=== PATIENT | female | born 1955 | race Caucasian/White ===

== ENCOUNTER → 2022-07-16 11:28 | Outpatient (CLI) | payer MEDICARE, SELFPAY ==
[2022-07-16 20:05] LABS: Alanine Aminotransferase 34 IU/L (<35); Albumin Globulin Ratio 1.3 (1.0-2.8); Alkaline Phosphatase 80 U/L (38-126); Aspartate Aminotransferase 32 IU/L (14-36); BUN Creatinine Ratio 18.8 (6-22); Bilirubin Total 0.4 mg/dL (0.2-1.3); Blood Urea Nitrogen 19 mg/dL (7-17); Calcium 9.2 mg/dL (8.4-10.2); Carbon Dioxide 27 mmol/L (22-32); Chloride 101 mmol/L (98-107); Estimated Glomerular Filt Rate > 60 mL/min (>60); Globulin 3.2 g/dL (1.7-4.1); Glucose 83 mg/dL (80-110); HEMOLYSIS < 15 (0-50); Potassium 4.7 mmol/L (3.4-5.1); Sodium 136 mmol/L (137-145); Total Protein 7.2 g/dL (6.3-8.2)
== END ==
PROVIDERS: PCP Physician Assistant; Visit Provider Physician Assistant
DX: M75.00 Adhesive capsulitis of unspecified shoulder (principal)
CPT/HCPCS: 80053

== ENCOUNTER 2024-03-13 13:58 | Emergency (ER) | payer MEDICARE, OTHER, SELFPAY ==
[2024-03-13 14:09] VITALS: BP 152/67; PULSE 74; RESP 17; TEMP 36.6; O2SAT 98
--- NOTE | 2024-03-13 14:15 | DI.RAD.S_ITS ---
PROCEDURE: XR TIBIA FUBULA RT 2V INDICATIONS: fall TECHNIQUE: 2 views of the tibia and fibula were acquired. COMPARISON: None. FINDINGS: Bones: No fractures or dislocations. No suspicious bony lesions. Soft tissues: No suspicious soft tissue calcifications or masses. IMPRESSION: No acute lower leg fracture or dislocation. Dictated by: John Guevara M.D. on 03/13/2024 at 15:15 Approved by: John Guevara M.D. on 03/13/2024 at 15:16
--- NOTE | 2024-03-13 14:15 | DI.RAD.S_ITS ---
PROCEDURE: XR KNEE RT 3V INDICATIONS: fall TECHNIQUE: 3 views of the knee were acquired. COMPARISON: None. FINDINGS: Bones: No fractures or dislocations. Mild tricompartmental osteoarthritis is seen. No patellar subluxation. No suspicious bony lesions. Soft tissues: Moderate suprapatellar joint effusion is seen. No suspicious soft tissue calcifications. IMPRESSION: No acute right knee fracture or dislocation. Moderate joint effusion. Mild tricompartmental osteoarthritis. Dictated by: John Guevara M.D. on 03/13/2024 at 15:13 Approved by: John Guevara M.D. on 03/13/2024 at 15:14
--- NOTE | 2024-03-13 14:15 | DI.RAD.S_ITS ---
PROCEDURE: XR RIBS LT 2V INDICATIONS: left posterior ribs TECHNIQUE: 3 views of the ribs were acquired. COMPARISON: None. FINDINGS: Surgical changes and devices: None. Bones and chest wall: No fractures or dislocations. No suspicious bony lesions. Overlying soft tissues appear unremarkable. Lungs and pleura: The visualized lung appears clear. No pleural effusions or pneumothorax are visible. IMPRESSION: No displaced rib fracture or pneumothorax. Dictated by: John Guevara M.D. on 03/13/2024 at 15:14 Approved by: John Guevara M.D. on 03/13/2024 at 15:15
--- NOTE | 2024-03-13 14:15 | DI.RAD.S_ITS ---
PROCEDURE: XR ANKLE RT MIN 3V INDICATIONS: fall TECHNIQUE: 3 views of the ankle were acquired. COMPARISON: None. FINDINGS: Bones: No fractures or dislocations. Ankle mortise is normally aligned. No suspicious bony lesions. Soft tissues: No tibiotalar joint effusion. Achilles tendon appears normal. IMPRESSION: * No acute ankle fracture or dislocation. Ankle mortise is congruent. Dictated by: John Guevara M.D. on 03/13/2024 at 15:09 Approved by: John Guevara M.D. on 03/13/2024 at 15:10
--- NOTE | 2024-03-13 14:15 | DI.RAD.S_ITS ---
PROCEDURE: XR ANKLE LT MIN 3V INDICATIONS: fall TECHNIQUE: 3 views of the ankle were acquired. COMPARISON: None. FINDINGS: Bones: No fractures or dislocations. Ankle mortise is normally aligned. No suspicious bony lesions. Soft tissues: No tibiotalar joint effusion. Achilles tendon appears normal. IMPRESSION: No acute ankle fracture or dislocation. Ankle mortise is congruent. Dictated by: John Guevara M.D. on 03/13/2024 at 15:09 Approved by: John Guevara M.D. on 03/13/2024 at 15:09
--- NOTE | 2024-03-13 14:15 | DI.RAD.S_ITS ---
PROCEDURE: XR FOOT RT MIN 3V INDICATIONS: fall TECHNIQUE: 3 views of the foot were acquired. COMPARISON: None. FINDINGS: Bones: No fractures or dislocations. No suspicious bony lesions. Soft tissues: No tibiotalar joint effusion. Achilles tendon appears normal. IMPRESSION: No acute right foot fracture or dislocation. Dictated by: John Guevara M.D. on 03/13/2024 at 15:12 Approved by: John Guevara M.D. on 03/13/2024 at 15:12
--- NOTE | 2024-03-13 14:15 | DI.RAD.S_ITS ---
PROCEDURE: XR FOOT LT MIN 3V INDICATIONS: fall TECHNIQUE: 3 views of the foot were acquired. COMPARISON: None. FINDINGS: Bones: No fractures or dislocations. No suspicious bony lesions. Tiny dorsal calcaneal enthesophyte is seen. Soft tissues: No tibiotalar joint effusion. Achilles tendon appears normal. IMPRESSION: No acute left foot fracture or dislocation. Dictated by: John Guevara M.D. on 03/13/2024 at 15:10 Approved by: John Guevara M.D. on 03/13/2024 at 15:11
--- NOTE | 2024-03-13 15:13 | ED.LOWEXIN ---
HPI - Extremity Injury (Lower) <Darby Delgado PA-C - Last Filed: 03/13/24 16:00> General Chief Complaint: Extremity Injury, Lower Stated Complaint: two broken legs sent from [facility] Time Seen by Provider: 03/13/24 14:51 Mode of arrival: Wheelchair History of Present Illness HPI Narrative: 69-year-old female presents to the ED status post a mechanical fall sustained yesterday. Patient states she was standing up on a 3 legged stool that was about 18 in inches high while trying to clean out her kitchen cabinets, when the stool gave out beneath her and she fell down to the floor. No head strike, no loss of consciousness. Patient is not on blood thinners. Patient is complaining of pain to her left posterior ribs, left foot, right lower leg. Patient endorses some tingling. Denies numbness, weakness. Patient states she is able to stand around an hobble but it is painful to bear weight, especially on her right foot. Patient was seen in the [facility], sent to the ED for further evaluation since there x-ray capabilities were not functional at the moment. Related Data Previous Rx's Medication Instructions Recorded cetirizine 10 mg capsule (Zyrtec) 10 mg PO DAILY PRN allergy 06/21/23 symptoms #14 caps Allergies Allergy/AdvReac Type Severity Reaction Status Date / Time amoxicillin Allergy Intermediate Verified 03/13/24 14:13 Penicillins Allergy Intermediate Verified 03/13/24 14:13 sunflower oil Allergy Intermediate hand Uncoded 03/13/24 14:13 swelling Review of Systems <Darby Delgado PA-C - Last Filed: 03/13/24 16:00> Constitutional Constitutional: Denies chills, Denies fatigue, Denies fever(s), Denies frequent falls, Denies lethargy and Denies weakness Eyes Eyes: Denies change in vision, Denies eye discharge, Denies irritation and Denies loss of vision ENT Ears, Nose, Mouth, and Throat: Denies change in voice, Denies dizziness, Denies neck pain, Denies sore throat and Denies throat swelling Cardiovascular Cardiovascular: Denies chest pain, Denies irregular heart rhythm, Denies lightheadedness, Denies palpitations, Denies dyspnea, Denies dyspnea on exertion and Denies orthopnea Respiratory Respiratory: Denies cough, Denies dyspnea, Denies dyspnea on exertion and Denies wheezing Gastrointestinal Gastrointestinal: Denies abdominal pain, Denies change in bowel habits, Denies diarrhea, Denies nausea and Denies vomiting Musculoskeletal Musculoskeletal: Denies neck pain and Denies numbness Comments: Right lower leg pain from knee on down. Most pronounced in the proximal tibial region on the duran. Patient does endorse some pain in the right pinky toe. Integumentary/Breasts Skin/Breast: Denies pruritus, Denies erythema, Denies rash and Denies wounds Neurologic Neurologic: Denies behavioral changes, Denies confusion, Denies dizziness, Denies frequent falls, Denies loss of vision, Denies numbness and Denies weakness Psychiatric Psychiatric: Denies anxiety, Denies behavioral changes, Denies confusion, Denies depression, Denies homicidal ideation and Denies suicidal ideation Endocrine Endocrine: Denies fatigue, Denies flushing and Denies palpitations Hematologic/Lymphatic Hematologic/Lymphatic: Denies easy bruising Allergic/Immunologic Allergic/Immunologic: Denies urticaria, Denies throat swelling and Denies wheezing Patient History <Darby Delgado PA-C - Last Filed: 03/13/24 16:00> Medical History (Updated 03/13/24 @ 15:56 by Darby Delgado PA-C) Rheumatoid arthritis Sleep apnea Chronic cough Osteoporosis (~2004) Rubella Mumps Chicken pox Anemia Vertigo (~2014) Abnormal Pap smear of cervix (~1981) Hemorrhoid Cervical cancer (~1981) Surgical History (Updated 07/27/22 @ 20:01 by Beverly Delgadillo) Anesthesia History of hysterectomy (~1981) History of appendectomy (~1978) Family History (Updated 07/27/22 @ 20:06 by Beverly Delgadillo) Father Cancer Mother Cancer Brother Cancer Sister Hyperlipidemia Grandfather Diabetes mellitus Grandfather Suicide Grandmother History of heart disease Social History Smoking Status: Never smoker Smoking Status: Never smoker alcohol intake frequency: a few times a month Substance Use Type: does not use Exam <Darby Delgado PA-C - Last Filed: 03/13/24 16:00> Narrative Exam Narrative: Const General:?cooperative, healthy appearing and comfortable HENAZ Head:?normal to inspection Ears:?hearing grossly normal bilaterally Nose:?external nose normal Face and sinus:?normal facial exam and sinuses nontender Mouth:?oral mucosae normal Throat:?posterior oropharynx normal Eyes General:?appearance normal, both eyes and all related structures Neck Neck:?normal visual inspection and no lymphadenopathy noted Resp Effort & Inspection:?normal respiratory effort Auscultation:?clear to auscultation bilaterally Cardio Rate:?regular rate Rhythm:?regular rhythm Musculoskeletal There is tenderness to palpation of the right leg from the knee on down. Patient localizes pain mostly to the proximal tibial area along the duran. There is a bruise in the left lower duran. Tenderness to palpation in the left pinky toe. There is minimal swelling of the right lower leg compared to the left. Range of motion limited by pain. Patient is in a wheelchair in the ED. sensation is intact. Neurovascularly intact Neuro General:?patient alert, patient awake and patient oriented x3 Initial Vital Signs Initial Vital Signs: Vital Signs Temperature 98 F 03/13/24 14:09 Pulse Rate 74 03/13/24 14:09 Respiratory Rate 17 03/13/24 14:09 Blood Pressure 152/67 H 03/13/24 14:09 Pulse Oximetry 98 03/13/24 14:09 Oxygen Delivery Method Room Air 03/13/24 14:09 <DO Rehan Davenport Last Filed: 03/17/24 23:54> Initial Vital Signs Initial Vital Signs: Vital Signs Temperature 98 F 03/13/24 14:09 Pulse Rate 74 03/13/24 14:09 Respiratory Rate 17 03/13/24 14:09 Blood Pressure 152/67 H 03/13/24 14:09 Pulse Oximetry 98 03/13/24 14:09 Oxygen Delivery Method Room Air 03/13/24 14:09 Course <Darby Delgado PA-C - Last Filed: 03/13/24 16:00> Orders Ordered: Discontinued Medications Ketorolac Tromethamine (Ketorolac 30 Mg/Ml Vial) 30 mg IM NOW ONE Stop: 03/13/24 15:23 Last Admin: 03/13/24 15:46 Dose: 30 mg Documented By: OPAL Vital Signs Vital signs: Vital Signs - 8 hr 03/13/24 14:09 03/13/24 15:49 Temperature 98 F Pulse Rate 74 75 Respiratory Rate 17 15 Blood Pressure 152/67 H 163/69 H Pulse Oximetry 98 99 Oxygen Delivery Method Room Air Room Air <DO Rehan Davenport Last Filed: 03/17/24 23:54> Orders Ordered: Discontinued Medications Ketorolac Tromethamine (Ketorolac 30 Mg/Ml Vial) 30 mg IM NOW ONE Stop: 03/13/24 15:23 Last Admin: 03/13/24 15:46 Dose: 30 mg Documented By: OPAL Vital Signs Vital signs: Vital Signs - 8 hr 03/13/24 14:09 03/13/24 15:49 Temperature 98 F Pulse Rate 74 75 Respiratory Rate 17 15 Blood Pressure 152/67 H 163/69 H Pulse Oximetry 98 99 Oxygen Delivery Method Room Air Room Air MDM - Extremity Injury (Lower) <Darby Delgado PA-C - Last Filed: 03/13/24 16:00> MDM Narrative Medical decision making narrative: 69-year-old female presents to the ED status post a mechanical fall sustained yesterday. Concern for fracture/dislocation versus musculoskeletal sprain/strain versus other. X-rays of bilateral lower extremities without acute findings. Patient received an injection of Toradol in the ED. patient's symptoms consistent with contusion/musculoskeletal sprain/strain from the fall. Recommend continuing ibuprofen, Tylenol at home. Recommend exercising good fall precautions. Patient is able to hobble around safely and safe for discharge. Recommend follow-up with PCP as soon as possible. ED return precautions discussed with patient. Patient verbalized understanding. Medical records reviewed: Yes Discharge Plan Departure Patient Disposition: Home Clinical Impression: Fall Qualifiers: Encounter type: initial encounter Qualified Code(s): W19.XXXA - Unspecified fall, initial encounter Instructions: DI for Leg Pain Activity Restrictions/Additional Instructions: You were evaluated in the ED today following a fall. Your x-rays were normal. It appears that your pain is from bruising and contusions from the fall. You were given a injection of Toradol in the ED today. You may continue taking 600 mg of ibuprofen every 8 hours for pain. You might also take 1000 mg of Tylenol for pain every 8 hours. Please exercise good fall precautions to avoid any falls. Please follow-up with your PCP as soon as possible. Return to the ED if you have worsening symptoms, numbness, tingling, weakness. Prescriptions: No Action Zyrtec 10 mg capsule 10 mg PO DAILY PRN (Reason: allergy symptoms) Qty: 14 0RF Referrals: Tato Mandel MD [Primary Care Provider] - Stand Alone Forms: Patient Portal/API ED Sign-out <Basilia Hammond, - Last Filed: 03/17/24 23:54> Cosign ED Attending Cosignature Attestation: I was available for consultation.
[2024-03-13] MEDS: KETOROLAC 30 MG/ML VIAL IM (15:46)
[2024-03-13 15:49] VITALS: BP 163/69; PULSE 75; RESP 15; O2SAT 99
== END 2024-03-13 16:01 | disposition home or self-care (01) ==
PROVIDERS: Emergency Provider Student in an Organized Health Care Education/Training Program; PCP Family Medicine
DX: S80.12XA Contusion of left lower leg, initial encounter (principal); R07.81 Pleurodynia; M79.675 Pain in left toe(s); M79.89 Other specified soft tissue disorders; W17.89XA Other fall from one level to another, initial encounter
CPT/HCPCS: 71100; 73562; 73590; 73610; 73630; 96372; 99283; J1885

== ENCOUNTER → 2024-05-24 11:17 | Outpatient (CLI) | payer MEDICARE, MEDICAID, SELFPAY ==
[2024-05-24 20:14] LABS: Add Manual Diff / Slide Review NO; Basophils Absolute Auto 100 /uL (0-100); Basophils Percent Auto 0.9 % (0-2); Eosinophils Absolute Auto 200 /uL (0-450); Eosinophils Percent Auto 3.9 % (2-4); Hematocrit 40.1 % (36-46); Hemoglobin 13.6 g/dL (12.0-16.0); Lymphocytes Absolute Auto 2000 /uL (1100-4500); Lymphocytes Percent Auto 35.7 % (25-40); Mean Corpuscular HGB Conc 34.1 % (30-36); Mean Corpuscular Hemoglobin 30.9 PG (26-34); Mean Corpuscular Volume 90.8 fL (80-100); Monocytes Absolute Auto 500 /uL (0-900); Monocytes Percent Auto 9.6 % (3-14); Neutrophils Absolute Auto 2800 /uL (1500-7000); Neutrophils Percent Auto 49.9 % (50-75); Platelet Count 231 X10^3/uL (150-400); Red Blood Cell Count 4.41 X10^6/uL (4.0-5.2); White Blood Cell Count 5.6 X10^3/uL (4.5-11.0)
[2024-05-24 20:23] LABS: C-Reactive Protein Quant 1.3 mg/dL (<1.0)
[2024-05-24 20:28] LABS: Rheumatoid Factor < 8.6 IU/mL (<12.0)
[2024-05-24 20:37] LABS: Erythrocyte Sedimentation Rate 28 MM/HR (0-20)
== END ==
PROVIDERS: PCP Family Medicine; Visit Provider Family Medicine
DX: M06.9 Rheumatoid arthritis, unspecified (principal); M54.16 Radiculopathy, lumbar region; D64.9 Anemia, unspecified
CPT/HCPCS: 85025; 85651; 86038; 86140; 86430

== ENCOUNTER → 2025-01-21 10:55 | Outpatient (CLI) | payer MEDICARE, MEDICAID, SELFPAY ==
--- NOTE | 2025-01-21 10:56 | DI.MRI.S_ITS ---
PROCEDURE: MR KNEE RT WO CON INDICATIONS: Persistent pain dysfunction since injury March 2024 TECHNIQUE: Noncontrast sagittal PD fast spin echo and T2 fast spin echo with fat saturation, sagittal 3-D FLASH with fat saturation; coronal T1 spin echo and PD fast spin echo with fat saturation, and axial PD fast spin echo with fat saturation through the knee. COMPARISON: None. FINDINGS: Image quality: Excellent. Menisci: Mild increased T2 weighted signal in the midbody and posterior horn junction of the medial meniscus may represent small vertical tear versus oblique tear exiting to the inferior surface otherwise the medial and lateral menisci are intact. Minimal meniscocapsular separation posterior medial capsule. Cruciate ligaments: The anterior and posterior cruciate ligaments appear intact. Medial structures: The medial collateral ligament appears intact. The semimembranosus tendon insertion is normal. Visualized portions of the pes anserinus tendons appear normal. No abnormal bursal fluid. Lateral structures: Mild increased T2 weighted signal and thickening of the distal long and short heads of the biceps and the distal aspect of the lateral collateral ligament. The popliteus tendon appears normal. Iliotibial band appears normal. Anterior structures: Patella Kitty. The quadriceps and patellar tendons appear intact. No edema in the infrapatellar fat pad. Flattening of the femoral trochlea may be an indication of patellar tracking instability. Bones and cartilage: Subchondral edema in the lateral patellar facet related to moderate diffuse cartilaginous thinning. Chondromalacia in the medial and lateral patellar facets, moderate diffuse cartilage thinning in the medial greater than lateral compartments without gross focal cartilage defect. No MR evidence of fracture line or dislocation. Joint space: Trace knee joint effusion. Minimal 1.5 cm popliteal cyst. IMPRESSION: Possible vertical tear of the midbody and posterior horn of the medial meniscus. Mild signal changes of the distal lateral collateral ligament and biceps tendons. Trace knee joint effusion. Degenerative changes with cartilage thinning in the patella greater than medial greater than lateral compartments. Dictated by: Asad Kaur M.D. on 01/22/2025 at 13:42 Approved by: Asad Kaur M.D. on 01/22/2025 at 14:27
== END ==
LOC: MRI 10:56
PROVIDERS: PCP Family Medicine; Referring Provider Family Medicine; Visit Provider Family Medicine
DX: M22.41 Chondromalacia patellae, right knee (principal); M23.91 Unspecified internal derangement of right knee
CPT/HCPCS: 73721

== ENCOUNTER → 2025-05-31 10:12 | Outpatient (CLI) | payer MEDICARE, MEDICAID, SELFPAY ==
[2025-05-31 19:30] LABS: Cholesterol 310 mg/dL (140-199); Glucose 93 mg/dL (70-99); HDL Cholesterol 53 mg/dL (40-60); Triglycerides 151 mg/dL (35-150)
[2025-05-31 20:18] LABS: Vitamin B12 413 pg/mL (239-931)
[2025-06-01 19:05] LABS: Hep C Virus Ab w/Reflex Quant NEGATIVE s/c (NEGATIVE)
== END ==
PROVIDERS: PCP Family Medicine; Visit Provider Family Medicine
DX: Z13.1 Encounter for screening for diabetes mellitus (principal); Z11.59 Encounter for screening for other viral diseases; Z13.6 Encounter for screening for cardiovascular disorders; E53.8 Deficiency of other specified B group vitamins
CPT/HCPCS: 80061; 82607; 82947; 86803